=== PATIENT | male | born 1965 | race Caucasian/White ===

== ENCOUNTER 2020-07-10 18:42 | Emergency (ER) | payer SELFPAY ==
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
== END 2020-07-10 20:10 | disposition home or self-care (01) ==
LOC: NAV ERS 18:42
DX: F10.129 Alcohol abuse with intoxication, unspecified (principal); J45.909 Unspecified asthma, uncomplicated
CPT/HCPCS: 36415; 70450; 72125